=== PATIENT | male | born 1950 | race Caucasian/White ===

== ENCOUNTER 2022-05-13 11:54 | Outpatient (CLI) | payer MEDICARE, OTHER ==
--- NOTE | 2022-05-13 16:23 | CT Report ---
PROCEDURE: UPPER EXTREMITY WO - LT INDICATIONS: LEFT SHOULDER DISLOCATION TECHNIQUE: Noncontrast 3 mm axial sections acquired of the left shoulder, with coronal and sagittal reformats. For radiation dose reduction, the following was used: automated exposure control, adjustment of mA a nd/or kV according to patient size. COMPARISON: Shoulder radiograph dated 05/07/2022 FINDINGS: Image quality: Excellent. Bones: There is posterior dislocation of humeral head in relation to glenoid. Acute slightly comminu derick fracture involving anterior medial aspect of humeral head extending to involve lesser tuberosity is seen with anterior and lateral displacement of lesser tuberosity fragment. Nondisplaced fracture i nvolving posterior inferior glenoid is also noted. No other fracture or dislocation is seen. Moderate acromioclavicular joint and glenohumeral joint osteoarthritic changes are noted. No suspicious intra osseous lesion. Visualized portion of left upper ribs are intact. Soft tissues: There is no gross full-thickness rotator cuff tendon rupture. No intra-articular loose bodies. No abnormal soft tissue calcifications. No significant muscle atrophy is seen on sagittal im ages. IMPRESSION: 1. Posterior dislocation at glenohumeral joint with reverse Hill-Sachs fracture of anterior medial hu meral head and reverse Bankart fracture involving posterior inferior glenoid as described above. No o ther fracture or dislocation. Acromioclavicular joint and glenohumeral joint osteoarthritis. 2. No full-thickness rotator cuff tendon rupture. No muscle atrophy. No abnormal soft tissue calcium lesions or intra-articular loose bodies. Reviewed by: Chester Jolly MD on 05/13/2022 4:21 PM PDT Approved by: Chester Jolly MD on 05/13/2022 4:21 PM PDT Station ID: [id number]
== END 2022-05-13 11:55 | disposition home or self-care (01) ==
LOC: DI 11:54
PROVIDERS: ATTEND Orthopaedic Surgery
DX: S43.025A Posterior dislocation of left humerus, initial encounter (principal); S42.292A Other displaced fracture of upper end of left humerus, initial encounter for closed fracture; S42.142A Displaced fracture of glenoid cavity of scapula, left shoulder, initial encounter for closed fracture; M19.012 Primary osteoarthritis, left shoulder